=== PATIENT | male | born 1975 | race Caucasian/White ===

== ENCOUNTER 2021-05-17 11:59 | Emergency (ER) | payer BC, SELFPAY ==
--- NOTE | ~2021-05-17 | CT_ITS ---
EXAMINATION: CT abdomen pelvis w con INDICATION: Nausea and vomiting TECHNIQUE: Computed tomographic images of the abdomen and pelvis were obtained after the administrati on of 20 cc of Omnipaque 350 intravenous contrast. The dose-length product (DLP) was 268.66 mGy-cm. A utomated exposure control and iterative reconstruction technique were employed. COMPARISON: None available FINDINGS: The lung bases are clear. The heart size is normal. The liver, spleen, pancreas, gallbladde r, and adrenal glands are normal. The kidneys are unremarkable. No pathologically enlarged abdominal or pelvic lymph nodes are identified. There is no free intraperitoneal gas or evidence of bowel obstr uction. The appendix is unremarkable. There is a small fat-containing umbilical hernia. IMPRESSION: 1. No CT correlate for the patient's symptoms. Reviewed, dictated and finalized at location B.
--- NOTE | 2021-05-17 12:11 | ED.NAVMDI ---
HPI - Nausea/Vomiting/Diarrhea General Chief complaint: Nausea/Vomiting/Diarrhea Stated complaint: sick nausea diarreha cramps possible dehydration Time Seen by Provider: 05/17/21 12:11 Source: patient History of Present Illness HPI Narrative: 45-year-old male with a history of regular marijuana use, alcoholism, status post repair of gastric perforation in 2004 presents to the ER with -- diffuse abdominal pain Since this morning along with -- nausea with multiple episodes of vomiting. He has had 3 episodes of vomiting since this morning. -- Three episodes of watery diarrhea. his niece had symptoms of gastroenteritis a few days ago. MD elicited complaint: nausea, vomiting, diarrhea and abdominal pain Pertinent past history: anorexia Onset (ago): hour(s) ( Started 6 hours ago) Description of vomiting: watery Description of diarrhea: watery Associated nausea: Yes Associated abdominal pain: Yes Location of pain: diffuse Pain consistency: constant Severity: severe Quality: cramping Exacerbating factors: none Relieving factors: none Associated symptoms: denies other symptoms Related Data Home Medications Medication Instructions Recorded Confirmed No Home Medications 05/17/21 05/17/21 Allergies Allergy/AdvReac Type Severity Reaction Status Date / Time No Known Allergies Allergy Verified 05/17/21 12:20 Review of Systems Review of Systems: All systems reviewed & are unremarkable except as noted in HPI and below Constitutional: Constitutional: Reports as per HPI, Reports no additional constitutional complaints and Reports anorexia Eyes: Eyes: Reports as per HPI and Reports no additional eye complaints ENT: Reports system reviewed and no additional complaints, except as documented and Reports as per HPI Cardiovascular: Cardiovascular: Reports as per HPI and Reports no additional cardiovascular complaints Respiratory: Respiratory: Reports as per HPI and Reports no additional respiratory complaints Gastrointestinal: Gastrointestinal: Reports as per HPI, Reports no additional gastrointestinal complaints, Reports abdominal pain, Reports diarrhea, Reports loose stools, Reports nausea and Reports vomiting Genitourinary: Genitourinary: Reports no additional male genitourinary complaints Musculoskeletal: Musculoskeletal: Reports no additional musculoskeletal complaints Integumentary/Breasts: Skin/Breast: Reports system reviewed and no additional complaints, except as docu Neurologic: Reports system reviewed and no additional complaints, except as documented Psychiatric: Psychiatric: Reports no additional psychiatric complaints Endocrine: Endocrine: Reports no additional endocrine complaints Hematologic/Lymphatic: Hematologic/Lymphatic: Reports no additional hematologic/lymphatic complaints Allergic/Immunologic: Allergic/Immunologic: Reports no additional allergic/immunologic complaints [facility] Past Medical History Medical History (Updated 05/17/21 @ 17:14 by Kishan Laura MD) Gastric ulcer with perforation Exam Const: General: cooperative, anxious, diaphoretic and ill appearing Nutritional Appearance: cachectic Orientation/consciousness: oriented to person, oriented to place, oriented to time and patient oriented x3 HENMT: Head: normal to inspection Ears: hearing grossly normal bilaterally General nose exam: Normal external nose present Face and sinus: normal facial exam Mouth: Yes lip normal, Yes tongue normal and Yes dry mucous membranes Throat: posterior oropharynx normal Eyes: General: appearance normal, both eyes and all related structures Neck: Neck: normal visual inspection, full ROM, no lymphadenopathy and no meningeal signs Chest: Chest palpation & inspection: normal inspection of the chest Resp: Effort & Inspection: normal respiratory effort Cardio: Rate: regular rate Rhythm: regular rhythm Heart sounds: S1 normal heart sound present and S2 normal heart sound present GI: Inspect
[2021-05-17 12:22] VITALS: BP 124/82; PULSE 70; RESP 20; TEMP 36.4; O2SAT 99
--- NOTE | 2021-05-17 12:25 | ECG_ITS ---
Measurements Intervals [place] Rate: 70 P: 44 [place]: 117 QRS: 83 QRSD: 93 T: 66 QT: 414 QTc: 447 Interpretive Statements SINUS RHYTHM WITH SINUS ARRHYTHMIA CONSIDER RIGHT/LEFT ARM LEAD TRANSPOSITION POSSIBLE LEFT VENTRICULAR HYPERTROPHY [VOLTAGE CRITERIA PLUS LAE OR QRS WIDENING] NONSPECIFIC ST ABNORMALITY NO PREVIOUS ECG AVAILABLE FOR COMPARISON Electronically Signed On 05-17-2021 15:56:21 CDT by Adelfo Ramirez M.D.
[2021-05-17] MEDS: PROCHLORPERAZINE EDISYLATE 10 MG/2 ML VIAL IV PUSH (13:05)
[2021-05-17] MEDS: MORPHINE SULFATE (*CRX) 2 MG/ML INJ IV PUSH (13:05)
[2021-05-17] MEDS: LACTATED RINGERS 1,000 ML 999 ML IV CONT (13:05)
--- NOTE | 2021-05-17 13:06 | PC.NURSE ---
Pt aware of UA order. Urinal at bedside and pt will notify staff when he is able to provide sample.
[2021-05-17 13:08] LABS: Basophils Absolute Auto 0.05 K/mm3 (0.00-0.10); Basophils Percent Auto 0.4 % (0.0-1.0); Eosinophils Absolute Auto 0.01 K/mm3 (0.02-0.50); Eosinophils Percent Auto 0.1 % (1.0-6.0); Hematocrit 47.7 % (40.0-54.0); Hemoglobin 16.4 g/dL (14.0-18.0); Immature Granulocyte Absolute 0.08 K/mm3 (0.00-0.00); Immature Granulocyte Percent A 0.6 % (0.0-0.0); Lymphocytes Absolute Auto 0.65 K/mm3 (1.10-4.50); Lymphocytes Percent Auto 4.7 % (18.0-42.0); Mean Corpuscular HGB Conc 34.4 g/dL (32.0-36.0); Mean Corpuscular Volume 90.2 fL (78.0-102.0); Mean Platelet Volume 11.1 fl (8.7-11.0); Monocytes Absolute Auto 0.91 K/mm3 (0.10-0.90); Monocytes Percent Auto 6.6 % (2.0-11.0); Neutrophils Absolute Auto 12.1 K/mm3 (1.7-7.2); Neutrophils Percent Auto 87.6 % (50.0-70.0); Platelet Count Result 247 K/mm3 (150-420); Red Blood Count 5.29 M/mm3 (4.70-6.10); Red Cell Distribution Width 12.7 % (11.6-14.4); White Blood Count 13.8 K/mm3 (4.8-10.8)
[2021-05-17 13:10] LABS: SARS-CoV-2 Ag Negative (Negative)
[2021-05-17 13:21] LABS: Prothrombin Time 10.7 Seconds (9.50-12.10)
[2021-05-17 13:22] LABS: Alanine Aminotransferase 24 U/L (16-63); Albumin Level 4.8 g/dL (3.4-5.0); Alkaline Phosphatase 90 U/L (46-116); Anion Gap 13 mmol/L (8-16); Aspartate Amino Transferase 10 U/L (15-37); Bilirubin,Total 0.6 mg/dL (0.00-1.00); Blood Urea Nitrogen 17 mg/dL (7-18); Calcium 9.9 mg/dL (8.5-10.1); Carbon Dioxide 26 mmol/L (21-32); Chloride 101 mmol/L (98-108); Estimated CRCL calculation 69 ml/min; Estimated Glomerular Filt Rate > 60; Glucose 142 mg/dL (70-99); Lipase 40 U/L (73-393); Osmolality Calculated 293 mOsm/kg (285-295); Potassium 4.3 mmol/L (3.5-5.1); Sodium 140 mmol/L (136-145); Total Protein 7.9 g/dL (6.4-8.2); Troponin I 4.2 ng/L (0.00-60.4)
[2021-05-17 13:25] LABS: Lactic Acid Reflex 3.6 mmol/L (0.4-2.0)
--- NOTE | 2021-05-17 14:18 | PC.NURSE ---
Pt requesting more pain medication. ERP aware.
[2021-05-17] MEDS: SODIUM CHLORIDE 0.9% IV 500 ML 999 ML IV CONT (14:37)
[2021-05-17 14:42] LABS: Add Urine Microscopic? YES; Appearance Urine Clear (Clear); Bilirubin Urine Negative (Negative); Blood Urine Negative (Negative); Color Urine Yellow (Yellow); Glucose Urine UA Negative (Negative); Ketones Urine Trace (Negative); Leukocyte Esterase Ur Negative (Negative); Nitrate Urine Negative (Negative); Protein Urine Trace (Negative); Specific Grav Ur 1.015 (1.010-1.020); Urobilinogen Urine 0.2 mg/dL (0.2-1.0); pH Urine 8.5 (5.0-8.0)
[2021-05-17 14:49] LABS: Amphetamine Screen Urine Negative (Negative); Barbiturate Screen Urine Negative (Negative); Benzodiazepines Screen Urine Negative (Negative); Cannabinoid Screen Urine Positive (Negative); Cocaine Screen Urine Negative (Negative); Methadone Screen Urine Negative (Negative); Opiate Screen Urine Positive (Negative); Phencyclidine Screen Urine Negative (Negative)
[2021-05-17 14:56] LABS: Bacteria Urine None seen /hpf; Mucus Urine Moderate /lpf; RBC Urine 0-2 /hpf (0-2); Squamous Epithelial Cell Urine Rare /hpf (Few); WBC Urine 0-3 /hpf (0-3)
--- NOTE | 2021-05-17 15:10 | PC.NURSE ---
ERP states that he wants pt's troponin and EKG repeated around 16:00.
--- NOTE | 2021-05-17 16:00 | ECG_ITS ---
Measurements Intervals [place] Rate: 72 P: 51 [place]: 125 QRS: 78 QRSD: 83 T: 57 QT: 401 QTc: 440 Interpretive Statements SINUS RHYTHM WITH SINUS ARRHYTHMIA VOLTAGE CRITERIA FOR LVH [MEETS CRITERIA IN ONE OF: R(aVL), S(V1), R(V5), R(V5/V6)+S(V1)] Abnormal ECG COMPARED TO ECG 05/17/2021 12:38:11 NO SIGNIFICANT CHANGES Electronically Signed On 05-18-2021 11:06:49 CDT by Corby Poon M.D.
[2021-05-17 16:04] LABS: Reflex Lactic Acid Yes or No Add Lactic
[2021-05-17 16:26] LABS: Troponin I 7.7 ng/L (0.00-60.4)
[2021-05-17 16:26] LABS: Lactic Acid Reflex 2.6 mmol/L (0.4-2.0)
[2021-05-17] MEDS: diazePAM (*CRX) 5 MG TABLET 10 MG (16:42)
[2021-05-17 17:17] VITALS: BP 111/70; PULSE 70; RESP 16; TEMP 36.1; O2SAT 95
== END 2021-05-17 17:22 | disposition home or self-care (01) ==
PROVIDERS: Emergency Provider Internal Medicine Critical Care Medicine; PCP Physician Assistant
DX: K52.9 Noninfective gastroenteritis and colitis, unspecified (principal); E86.0 Dehydration; F10.20 Alcohol dependence, uncomplicated; Z20.822 Contact with and (suspected) exposure to COVID-19
CPT/HCPCS: 36415; 74177; 80053; 80307; 81001; 83605; 83690; 84484; 85025; 85610; 87040; 87426; 93005; 96361; 96374; 96375; 99284; A9270; C9803; J0780; J2270; J7040; J7120; Q9967